=== PATIENT | male | born 1965 | race Caucasian/White ===

== ENCOUNTER 2022-02-02 15:43 | Emergency (ER) | payer BC ==
[~2022-02-02] VITALS: Ht 180.3 cm; Wt 116.1 kg
--- NOTE | 2022-02-02 16:45 | ED.ADGEN ---
Past Medical History Additional Past Medical Histor: unknown Past Surgical History: Other Additional Past Surgical Histo: unknown General Adult EDM: Chief Complaint: CPR/FULL ARREST HPI: HPI: Patient is a 56 year old male coming in via EMS in cardiac arrest. Per EMS report patient was found in his work truck, coworkers noticed it on the side of the road. With the check on him he was unresponsive. On EMS arrival he was in asystole versus possible V. fib, they think that there might have been some artifact. Coworkers told PD that they had not heard from him all day. Unknown past medical history, but EMS states there was some "diabetic equipment" on the seat next to him. The car was parked off the road there was no signs of impact or damage to the vehicle. EMS had given 1 defibrillation for possible V. fib and 1 round of epinephrine via IO in the right humerus Review of Systems: Review of Systems: Unable to obtain Allergies: Allergies: Allergies Coded Allergies Type Severity Reaction Last Updated Verified Unable to Assess 02/02/22 No Physical Exam: PE: Constitutional: Well developed, well nourished, no signs of trauma HENT: Normocephalic, atraumatic, bilateral external ears normal, nose normal. [] Eyes: Pupils 5 mm nonreactive, symmetric, conjunctiva normal, no discharge. [] Neck: No rigidity, supple, no stridor. [] Cardiovascular: CPR ongoing Lungs & Thorax: BVM via eye gel, symmetric chest expansion Abdomen: Soft, nondistended. Skin: Cool to the touch, mottling on dependent areas of the trunk, genitalia, buttocks and thighs Back: Unremarkable Extremities: No deformities, no lower extremity edema [] Neurologic: GCS 3 Psychologic: Unable to assess Current Patient Data: Vital Signs: Vital Signs Date Time Temp Pulse Resp B/P (MAP) Pulse Ox O2 Delivery O2 Flow Rate FiO2 02/02/22 15:43 97.9 97.9 EKG: EKG: [] Heart Score: C/O Chest Pain: N/A Risk Factors: Risk Factors: DM, Current or recent (<one month) smoker, HTN, HLP, family history of CAD, obesity. Risk Scores: Score 0 - 3: 2.5% MACE over next 6 weeks - Discharge Home Score 4 - 6: 20.3% MACE over next 6 weeks - Admit for Clinical Observation Score 7 - 10: 72.7% MACE over next 6 weeks - Early Invasive Strategies Radiology/Procedures: Radiology/Procedures: Patient in asystole on arrival, compressions ongoing. Ventilated through a eye gel. Patient given epinephrine, bicarb, and calcium. Blood glucose unable to be obtained and was reading low, given 1 amp of D50. No response to medications, [place] was asystole on the monitor x3. Given the time the patient was likely down since livor mortis had begun to accumulate time of was called at 1551. [] Course & Med Decision Making: Course & Med Decision Making Total critical care time: 35 The time involved in the performance of separately reportable/billable procedures was not counted toward critical care time. Due to a high probability of clinically significant, life-threatening deterioration the patient required a high level of care to intervene emergently and I personally spent this critical time directly and personally managing the patient. The critical care time included obtaining a history, examination of the patient, assessment of vital signs, ordering and review of studies, arranging urgent treatment with development of a management plan, evaluation of patient's response to treatment, frequent reassessment, and discussions with other providers and/or family members. Sukhi Disclaimer: Sukhi Disclaimer: This electronic medical record was generated, in whole or in part, using a voice recognition dictation system. Departure Departure Impression: Primary Impression: Cardiac arrest Disposition: 20 Referrals: NO PCP (PCP) FRANCISCO BLACKMON MD Feb 02, 2022 16:45
== END 2022-02-02 19:11 ==
LOC: ER 15:43
DX: I46.9 Cardiac arrest, cause unspecified (principal)
CPT/HCPCS: 92950; 99291-25